=== PATIENT | female | born 1980 | race Caucasian/White ===

== ENCOUNTER 2019-01-15 08:25 | Emergency (ER) | payer MEDICAID, OTHER ==
--- NOTE | 2019-01-15 08:38 | EDPHY ---
H & P Stated Complaint: chest pain Time Seen by Provider: 01/15/19 08:30 HPI/ROS: CHIEF COMPLAINT: Chest pain HISTORY OF PRESENT ILLNESS: The patient is a homeless female who presents the emergency department after she developed chest pain while being arrested. The patient denies prior cardiac history. She takes no regular medications. She denies any fever, cough or congestion. She denies additional acute complaints. REVIEW OF SYSTEMS: A comprehensive 10 point review of systems is otherwise negative aside from elements mentioned in the history of present illness. Source: Patient, EMS - Personal History LMP (Females 10-55): Unknown Current Tetanus/Diphtheria Vaccine: Unsure Current Tetanus Diphtheria and Acellular Pertussis (TDAP): Unsure - Medical/Surgical History Hx Asthma: No Hx Chronic Respiratory Disease: No Hx Diabetes: No Hx Cardiac Disease: No Hx Renal Disease: No Hx Cirrhosis: No Hx Alcoholism: No Hx HIV/AIDS: No Hx Splenectomy or Spleen Trauma: No - Social History Smoking Status: Current some day smoker - Physical Exam Exam: General Appearance: Disheveled female, no acute distress Eyes: Pupils equal and round no pallor or injection ENT, Mouth: Mucous membranes moist Respiratory: There are no retractions, lungs are clear to auscultation Cardiovascular: Regular rate and rhythm Gastrointestinal: Abdomen is soft and nontender, no masses, bowel sounds normal Neurological: 5/5 strength all 4 extremities Skin: Warm and dry, no rashes Musculoskeletal: Neck is supple nontender Extremities: symmetrical, full range of motion Constitutional: Initial Vital Signs Heart Rate 92 01/15/19 08:29 Respiratory Rate 21 H 01/15/19 08:29 Blood Pressure 107/80 01/15/19 08:29 O2 Sat (%) 98 01/15/19 08:29 O2 Delivery Mode Room Air Allergies/Adverse Reactions: Penicillins Allergy (Verified 01/15/19 08:33) Sulfa (Sulfonamide Antibiotics) Allergy (Verified 01/15/19 08:33) Home Medications: Medication Instructions Recorded NK [No Known Home Meds] 01/15/19 Medical Decision Making ED Course/Re-evaluation: The patient is refusing an EKG in the emergency department. I did review her pre-hospital EKG which demonstrates a normal sinus rhythm without evidence of ischemia. The patient has no risk factors for cardiac disease. I do not feel that she is experiencing acute coronary syndrome but rather having symptoms of anxiety secondary to being arrested. Departure - Departure Disposition: Home, Routine, Self-Care Clinical Impression: Chest pain Condition: Good Instructions: Chest Pain (ED) Additional Instructions: 1. The EKG performed by paramedics demonstrates no evidence of an arrhythmia or cardiac condition. You have declined further testing in the emergency department today. 2. I do recommend establishing primary care. You [facility] been given [facility] Referrals: [facility],. [Clinic] - As per Instructions
[2019-01-15 09:17] VITALS: BP 118/69
== END 2019-01-15 09:08 | disposition home or self-care (01) ==
LOC: EEVIPCON 08:25
DX: R07.9 Chest pain, unspecified (principal); Z59.0 Homelessness

== ENCOUNTER 2019-01-17 14:27 | Emergency (ER) | payer OTHER ==
--- NOTE | 2019-01-17 14:40 | EDPHY ---
H & P - Medical/Surgical History Hx Asthma: No Hx Chronic Respiratory Disease: No Hx Diabetes: No Hx Cardiac Disease: No Hx Renal Disease: No Hx Cirrhosis: No Hx Alcoholism: No Hx HIV/AIDS: No Hx Splenectomy or Spleen Trauma: No - Social History Smoking Status: Current some day smoker Time Seen by Provider: 01/17/19 14:31 HPI/ROS: CHIEF COMPLAINT: Suicidal statements, M1 HISTORY OF PRESENT ILLNESS: 38-year-old f homeless female arrives via police on an M1 hold. Per the M1 hold in per the patient when she was being booked into alf she made statements of suicide with no specific plan was subsequently placed on a pre-hospital M1. The time I interview her she states that these were made in the heat of the moment and she regrets making the statements. She denies suicidal or homicidal ideation at the time I interview her. No complaints of pain or discomfort. REVIEW OF SYSTEMS: 10 systems reviewed and negative with the exception of the elements mentioned in the history of present illness PAST MEDICAL & SURGICAL HISTORY: Patient denies prior history of hospitalization for mental health issues. SOCIAL HISTORY:Denies methamphetamine abuse. PHYSICAL EXAM (Prior to examination, patient consented to physical exam, hands were washed and my usual and customary physical exam procedures followed) 1) GENERAL: foul-smelling, dirty, poorly kept, rapid speech, flight of ideas, alert and oriented. Appears to be in no acute distress. 2) HEAD: Normocephalic, atraumatic 3) HEENT: Pupils equal, round, reactive to light bilaterally. Sclera anicteric. 4) NECK: Full range of motion, no meningeal signs. 5) LUNGS: Clear auscultation bilaterally, no wheezes, no rhonchi, no retractions. 6) HEART: Regular rate and rhythm, no murmur, no heave, no gallop. 7) ABDOMEN: No guarding, no rebound, no focal tenderness, negative McBurney's, negative Kelley's, negative Rovsing's, negative peritoneal sign, 8) MUSCULOSKELETAL: Moving all extremities, no focal areas of tenderness, no obvious trauma. No peripheral edema or discoloration. 9) BACK: No CVA tenderness, no midline vertebral tenderness, no fluctuance, no step-off, no obvious trauma, no visual or palpable abnormality. 10) SKIN: multiple excoriated areas on her arms with no signs of super infection.. 11) Psychiatric: Patient is oriented X 3, there is no agitation. Rapid speech , flight of ideas. DIFFERENTIAL DIAGNOSIS: In no particular order including but not limited to psychosis, suicidal ideation, homicidal ideation (Blaine Talbot) Constitutional: Initial Vital Signs Temperature (C) 36.5 C 01/17/19 16:06 Heart Rate 68 01/17/19 16:06 Respiratory Rate 18 01/17/19 16:06 Blood Pressure 122/74 H 01/17/19 16:06 O2 Sat (%) 95 01/17/19 16:06 O2 Delivery Mode Room Air Allergies/Adverse Reactions: Penicillins Allergy (Verified 01/17/19 16:18) Sulfa (Sulfonamide Antibiotics) Allergy (Verified 01/17/19 16:18) Home Medications: Medication Instructions Recorded NK [No Known Home Meds] 01/15/19 Medical Decision Making ED Course/Re-evaluation: 5:00 p.m.: Care turned over to Dr. Ludivina Castro awaiting mental health evaluation. (Blaine Talbot) At the time of sign-out patient was stable. Patient was awaiting evaluation. 2100: Patient is signed out to Dr. Gutierrez at change of shift. Patient is awaiting psychiatric evaluation. (Ludivina Castro) 10:45 p.m. the patient has been evaluated. She has been accepted at [facility] inpatient for decompensated psychosis. She admits that not being suicidal. (Malvin Gutierrez) Other Provider: 2300 care assumed by me from Dr. Gutierrez pending transfer. Patient noted to have scabies. She has been treated with permethrin. Patient can be transferred to their facility after 12 hr. Patient has been accepted at [facility] with plan to transfer in the morning. [address] out to [address] Morris pending transfer. (Pravin Cuenca) - Data Points Laboratory Results: Laboratory Results 01/17/19 16:10 01/17/19 16:10 Medications Given: Discontinued Medications Permethrin (Elimite 5%) 2 raj TP EDNOW ONE Stop: 01/17/19 18:48 Last Admin: 01/17/19 19:16 Dose: 1 tube Departure - Departure Disposition: [facility] IP Clinical Impression: Theresa, Acute psychosis Condition: Fair Referrals: NONE *PRIMARY CARE P,. [Primary Care Provider] - As per Instructions
[2019-01-17 16:23] LABS: PLATELET COUNT 322 10^3/uL (150-400)
[2019-01-17] MEDS ORDERED: PERMETHRIN 5% 60 GM CREAM TP ONE (18:47)
--- NOTE | 2019-01-17 23:16 | ASMTTCLDSP ---
TLC Discharge Disposition Disposition: Answers: Admit Discharge Concerns/Recommendations: Notes: In consultation with [facility] ED physician, Malvin Gutierrez MD and [facility] on-call psychiatrist, Emigdio Ibrahim MD, both concurred that pt appears to meet 27-65 criteria requiring psychiatric hospitalization as the patient appears to be an imminent risk of harm to gravely disabled due to a mental illness condition. The patient was read the Patient Rights and Responsibilities Statement (placed on chart) and given photocopy of Rights. The patient was given the 3N prohibited belongings list while in the ED. Was patient given the Answers: Yes Inpatient Behavioral Health Prohibited Belongings List while in the ED? For inpatient Emigdio Ibrahim MD admission, the following psychiatrist agreed to accept patient for admission to Behavioral Health ([facility]): Type of Hold: Answers: M1/72-hour Hold Date Signed: 01/17/2019 11:15 PM Electronically Signed By:Brittany Rich
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
[2019-01-18 08:44] VITALS: BP 134/78
== END 2019-01-18 10:36 ==
DX: R45.851 Suicidal ideations (principal); F30.9 Manic episode, unspecified; B86 Scabies
CPT/HCPCS: 80305; G0480

== ENCOUNTER 2019-01-18 10:35 | Inpatient (IN) | payer OTHER ==
[2019-01-18 12:05] VITALS: BP 128/71
--- NOTE | 2019-01-18 14:42 | PDHOSCONS ---
History and Physical - Chief Complaint suicidal ideation/lice - History of Present Illness 38 yo F with PMH unknown presenting from shelter with complaints of being suicidal. She denied having a specific plan, placed on M1 hold. At the time of my evaluation patient denies suicidal thoughts but appears disorganized and has trouble answering questions, also asks me to leave and states she does not want me to speak to her any further. She does state that she has 'body lice' and even though she was given medication for it in the ER, she has concerns that they are still on her and she needs more meds. She denies any other concerns currently. Interestingly, she was also arrested several days ago and when taken to shelter complained of chest pain and so was brought to ER for further evaluation. History Information - Allergies/Home Medication List Allergies/Adverse Reactions: pineapple Allergy (Verified 01/18/19 09:50) Sulfa (Sulfonamide Antibiotics) Allergy (Verified 01/18/19 09:50) Anaphylaxis Home Medications: NK [No Known Home Meds] 01/15/19 [Last Taken Unknown] I have personally reviewed and updated: family history, medical history, social history, surgical history - Past Medical History Additional medical history: patient denies, unknown - Surgical History Additional surgical history: patient denies - Family History Additional family history: patient denies - Social History Smoking Status: Current some day smoker Alcohol Use: Occasionally Drug Use: None Additional social history: homeless Review of Systems Review of Systems: ROS: 10pt was reviewed & negative except for what was stated in HPI & below Physical Exam Physical Exam: patient declined allowing me to further examine her, limiting the exam as below Temp Pulse Resp BP Pulse Ox 36.9 C 91 14 128/71 H 96 01/18/19 12:04 01/18/19 12:04 01/18/19 12:04 01/18/19 12:04 01/18/19 12:04 Constitutional: appears nourished, unkempt Eyes: anicteric sclera Skin: other (multiple bites) Neurologic: AAOx3 Psychiatric: anxious, poor insight Assessment & Plan Assessment: 38 yo F with unknown PMH presenting with suicidal ideation and concerns for psychosis # suicidal ideation: patient now denying that, unclear if it was impulsive in the setting of arrest or some level of malingering given recent arrest with chest pain # ? psychosis: patient appears paranoid and guarded, she is not overtly responding to internal stimuli but behavior concerning for psychotic state, on M1 hold and being admitted to for further evaluation as patient appears gravely disabled # infestation: patient with lice or scabies, treated in ER with permethrin # Patient new to my care. Old records reviewed and summarized as above. Care plan reviewed with ER doctor as above.
[2019-01-18] MEDS ORDERED: LORazepam 0.5 MG TAB PO PRN (21:45)
[2019-01-18] MEDS ORDERED: MAGNESIUM HYDROXIDE 30 ML UDCUP PO PRN (21:45)
[2019-01-18] MEDS ORDERED: OLANZapine DISINTEGR 5 MG TAB PO PRN (21:45)
[2019-01-18] MEDS ORDERED: ACETAMINOPHEN 325 MG TAB PO PRN (21:45)
[2019-01-18] MEDS ORDERED: MAG HYDROX/AL HYDROX/SIMETH 30 ML UDCUP PO PRN (21:45)
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
--- NOTE | 2019-01-19 11:09 | PDMN ---
Medical Necessity Medical necessity: [facility] [id number] Schizophrenia Spectrum Disorders, Adult: Inpatient Care, 6 days: 38 yo w/ unspecified schizophrenia spectrum and other psychotic d/o, pt is homeless, making suicidal statements, speech often nonsensical, M1 hold. Admit IP status BEH unit.
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
--- NOTE | 2019-01-20 14:56 | SOAPPROG ---
SOAP Progress Note Assessment/Plan: Assessment: Plan: 01/20/19 14:56 Psychosis: Pt appears to be Schizophrenic v. Schizoaffective. She is less guarded and more cooperative today. Denies illness and refuses any medications. Will monitor, continue to offer Zyprexa at . Subjective: Pt seen, discussed with staff, chart reviewed, interviewed in Treatment Team meeting. She remains aloof, internally preoccupied. Talking to reflection of self in TV for two hours after lunch. Able to reasonably discuss her situation in Team meeting. She denies any history of mental illness or ever taking any psychotropic medications. She declines any treatment here except for the scabies. She states she is willing to stay here until she feels better. Slept well last night. Less hostile today. Disheveled, guarded. Affect is restricted, stable. Mood is "fine." TP is generally linear. TC reveals some paranoid thinking, internal preoccupation, RIS. Objective: Vital Signs Temp Pulse Resp BP Pulse Ox 36.9 C 91 14 128/71 H 96 01/18/19 12:04 01/18/19 12:04 01/18/19 12:04 01/18/19 12:04 01/18/19 12:04 - Time Spent With Patient Time Spent With Patient: 25" ICD10 Worksheet Patient Problems: Problems Problem Status Onset Schizo-affective schizophrenia, chronic condition with acute exacerbation Acute Bipolar affective disorder, currently manic, severe, with psychotic features Acute
--- NOTE | 2019-01-21 08:11 | SOAPPROG ---
SOAP Progress Note Assessment/Plan: Assessment: Unspecified Psychosis. No improvement noted. (see subjective/objective note). Patient could benefit from continued inpatient hospitalization for crisis stabilization, safety, and medication evaluation. Plan: 1. Psychotropic medications: patient reports she prefers not to take medications at this time. 2. Review with patient informed consent and recommendations for psychotropic medication treatment listed below 3. Labs: no additional labs at this time 4. Therapy: continue milieu and group therapy 5. Further investigation including gathering information from patients relatives and review of past case records to inform treatment plan. 6. Safety/Wellness plan and follow-up outpatient appointments to be established prior to discharge. Next steps are for patient to meet with personal care assistant to plan a safe discharge plan and establish outpatient services for ongoing treatment. 7. Confer with inpatient treatment team regarding treatment plan. 8. Psychosocial stressors addressed through counseling case manager. 9. Legal status: voluntary 10. Consider discharge this week if patient is in stable condition, safe, and has a safe discharge plan. PSYCHOTROPIC MEDICATION TREATMENT INFORMED CONSENT and RECOMMENDATIONS: Review nature of condition, diagnosis, and prognosis. Review nature and purpose of psychotropic medication treatment. Review type of psychotropic medications being ordered. Review risk and benefits of psychotropic medication treatment. Review probable length of time patient will need to take medications. Review risk and benefits of not undergoing psychotropic medication treatment. Review alternative treatments to psychotropic medications. Review psychotropic medications contraindications, drug-drug interactions, side effects, and importance of reporting any side effects to a psychiatric provider or nurse during inpatient hospitalization, and upon discharge to patients psychiatric outpatient provider, primary care provider, or other health direct care worker. Review importance of asking a nurse, psychiatric provider, or primary care provider any questions or problems concerning the psychotropic medications. Verify patient understands the information that has been provided, and understands, accepts, and agrees to psychotropic medications. Review patients safety plan and importance of patient to report to staff while hospitalized if patient is ever a danger to self/others, or unable to care for self, and upon discharge, the importance for patient to contact [facility] or [facility], or go to the nearest emergency room, if patient is ever a danger to self/others, or unable to care for self. Recommend that upon discharge patient establish medication management treatment with a psychiatric provider, establishes routine therapy appointments, and follow-up with primary care provider. Verify patient understands and agrees to these recommendations. 01/21/19 08:10 Subjective: Following up with patient for evaluation of psychosis and safety. Patient reports, "Oh, had a weird dream this morning. Is breakfast ready?" Patient reports she is not interested in psychotropic medications. Objective: Vital Signs Temp Pulse Resp BP Pulse Ox 36.9 C 91 14 128/71 H 96 01/18/19 12:04 01/18/19 12:04 01/18/19 12:04 01/18/19 12:04 01/18/19 12:04 MSE: The patient is well-nourished female looking stated chronological age. Attire is appropriate dress is casual. Grooming status is appropriate. Ambulation is independent. Gait is normal and coordinated. Posture is normal and relaxed. Eye contact is appropriate. Motor activity is appropriate with purposeful, organized, coordinated movements; with no involuntary movements. Attitude is fairly cooperative. Patient appears distractible and does not relate well to this interviewer. Language production is spontaneous. R/R/V normal. Articulation is clear. Patient reports mood as okay with anxious incongruent affect. Patients thought process is non-linear, illogical, disorganized, and tangential. Patient does not report suicidal/homicidal thoughts, ideas, or plans. Patient denies auditory, visual hallucinations. Patient denies delusions. Patient does appear to be attending to internal stimuli. Patients attention and concentration are poor. Patient is oriented to person, place, time. Patients insight is poor. Patients judgment is poor. - Time Spent With Patient Time Spent With Patient: 15 minutes, met with patient individually. - Pending Discharge Pending Discharge Within 24 Hours: No Pending Discharge Within 48 Hours: No ICD10 Worksheet Patient Problems: Problems Problem Status Onset Schizo-affective schizophrenia, chronic condition with acute exacerbation Acute Bipolar affective disorder, currently manic, severe, with psychotic features Acute
--- NOTE | 2019-01-21 13:54 | ASMTCMCOM ---
CM Note CM Note Notes: Pt. reports her shoulder still hurting. Pt. reports sleeping "pretty good". Pt. reports getting enough to eat, adding "it's amazing". Pt. reports not currently taking any medications. Pt. reports wanting to attend art group today. Pt. denied having any issues while on the unit. Pt. denied SI, HI, AVH and paranoia. Pt. reports thinking she was suppose to discharge today or tomorrow. Pt. presents as alert, calm, disheveled, spilling food on herself, poor eye contact and mostly cooperative. Staff report pt. sleeping 8 hours and not having scheduled medications. Pt. has a registration appointment on 01/24/19 at 8:30am. Date Signed: 01/21/2019 01:53 PM Electronically Signed By:Delores Guzmán
[2019-01-21] MEDS ORDERED: OLANZapine DISINTEGR 10 MG TAB PO SCH (21:00)
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
--- NOTE | 2019-01-23 13:44 | ASMTBHDC ---
Notes Note: Notes: Pt. reports feeling "good". Pt. reports she slept "pretty good" adding she was able to remember her dreams. Pt. reports getting enough to eat, adding she "really like the portions". Pt. reports her shoulder slowly improving. Pt. stated "it's jacobsen outside...must be why I'm in here". Pt. reports not currently taking any medications. Pt. reports she "maybe" will attend some groups today, adding she "need to be still". Pt. denied SI, HI, AVH and paranoia. Pt. stated she thinks she might discharge tomorrow. Pt. presents in bed, alert, calm, some eye contact, slightly paranoia (aeb not letting CC fully enter room), and mostly cooperative. Staff report pt. sleeping 5.5 hours, being withdrawn to her room and having no scheduled medications. Pt. has an intake appointment with [facility] tomorrow morning at 8:30am. CC to leave a message with [facility] about moving appointment back a day or two. Date Signed: 01/23/2019 01:43 PM Electronically Signed By:Delores Guzmán
--- NOTE | 2019-01-24 06:54 | SOAPPROG ---
SOAP Progress Note Assessment/Plan: Assessment: Unspecified Psychosis. Cannabis Use Disorder. R/O Schizophrenia, Schizoaffective Disorder. No improvement noted. (see subjective/objective note) . Attending to internal stimuli, delusional, withdrawn from social interactions. Patient could benefit from continued inpatient hospitalization for crisis stabilization, safety, and medication evaluation. Plan: 1. Psychotropic medications: Begin trial of Zyprexa Zydis 10 mg po QHS. 2. Review with patient informed consent and recommendations for psychotropic medication treatment listed below 3. Labs: no additional labs at this time 4. Therapy: continue milieu and group therapy 5. Further investigation including gathering information from patients relatives and review of past case records to inform treatment plan. 6. Safety/Wellness plan and follow-up outpatient appointments to be established prior to discharge. Next steps are for patient to meet with care worker to plan a safe discharge plan and establish outpatient services for ongoing treatment. 7. Confer with inpatient treatment team regarding treatment plan. 8. Psychosocial stressors addressed through pillowcase cleaner. 9. Legal status: [facility] 10. Consider discharge this week if patient is in stable condition, safe, and has a safe discharge plan. PSYCHOTROPIC MEDICATION TREATMENT INFORMED CONSENT and RECOMMENDATIONS: Review nature of condition, diagnosis, and prognosis. Review nature and purpose of psychotropic medication treatment. Review type of psychotropic medications being ordered. Review risk and benefits of psychotropic medication treatment. Review probable length of time patient will need to take medications. Review risk and benefits of not undergoing psychotropic medication treatment. Review alternative treatments to psychotropic medications. Review psychotropic medications contraindications, drug-drug interactions, side effects, and importance of reporting any side effects to a psychiatric provider or nurse during inpatient hospitalization, and upon discharge to patients psychiatric outpatient provider, primary care provider, or other health career development consultant. Review importance of asking a nurse, psychiatric provider, or primary care provider any questions or problems concerning the psychotropic medications. Verify patient understands the information that has been provided, and understands, accepts, and agrees to psychotropic medications. Review patients safety plan and importance of patient to report to staff while hospitalized if patient is ever a danger to self/others, or unable to care for self, and upon discharge, the importance for patient to contact [facility] or [facility], or go to the nearest emergency room, if patient is ever a danger to self/others, or unable to care for self. Recommend that upon discharge patient establish medication management treatment with a psychiatric provider, establishes routine therapy appointments, and follow-up with primary care provider. Verify patient understands and agrees to these recommendations. 01/24/19 06:51 Subjective: Following up with patient for evaluation of psychosis and safety. Patient reports as talking to herself in reflection of TV, "Just looking at my eyes." Objective: Vital Signs Temp Pulse Resp BP Pulse Ox 36.9 C 91 14 128/71 H 96 01/18/19 12:04 01/18/19 12:04 01/18/19 12:04 01/18/19 12:04 01/18/19 12:04 MSE: The patient is well-nourished female looking stated chronological age. Attire is appropriate dress is casual. Grooming status is appropriate. Ambulation is independent. Gait is normal and coordinated. Posture is normal and relaxed. Eye contact is appropriate. Motor activity is appropriate with purposeful, organized, coordinated movements; with no involuntary movements. Attitude is fairly cooperative. Patient appears distractible and does not relate well to this interviewer. Language production is spontaneous. R/R/V normal. Articulation is clear. Patient reports mood as okay with anxious incongruent affect. Patients thought process is non-linear, illogical, disorganized, and tangential. Patient does not report suicidal/homicidal thoughts, ideas, or plans. Patient denies auditory, visual hallucinations. Patient denies delusions. Patient does appear to be attending to internal stimuli. Patients attention and concentration are poor. Patient is oriented to person, place, time. Patients insight is poor. Patients judgment is poor. - Time Spent With Patient Time Spent With Patient: 15 minutes, met with patient individually. - Pending Discharge Pending Discharge Within 24 Hours: No Pending Discharge Within 48 Hours: No ICD10 Worksheet Patient Problems: Problems Problem Status Onset Schizo-affective schizophrenia, chronic condition with acute exacerbation Acute Unspecified psychosis Acute Bipolar affective disorder, currently manic, severe, with psychotic features Acute
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
--- NOTE | 2019-01-24 15:07 | ASMTCMCOM ---
CM Note CM Note Notes: Staff report pt. sleeping 6 hours and having no scheduled medications. Staff report pt. responding to internal stimuli often. Per provider, pt. will be offered Zyprexa this evening. RN spoke with pt. about this medication, pt. stated she does not take psychiatric medications. Per provider, CC to move pt's appointments back at least one week. Provider informed about pt's feelings toward medications. Pt's current appointment is on 01/26/19 @ 8:30am. CC to reschedule appointment Date Signed: 01/24/2019 02:38 PM Electronically Signed By:Delores Guzmán
[2019-01-24] MEDS: OLANZapine DISINTEGR 10 MG TAB PO SCH (22:05)
--- NOTE | 2019-01-25 08:13 | SOAPPROG ---
SOAP Progress Note Assessment/Plan: Assessment: Unspecified Psychosis. R/O Schizophrenia, Schizoaffective Disorder. No improvement noted. Patient refusing needed medications, responding to internal stimuli, delusional (see subjective/objective note). Patient could benefit from continued inpatient hospitalization for crisis stabilization, safety, and medication evaluation. Plan: 1. Psychotropic medications: Continue current medications. Continue to educate patient on the importance of taking medications as prescribed. 2. Review with patient informed consent and recommendations for psychotropic medication treatment listed below 3. Labs: no additional labs at this time 4. Therapy: continue milieu and group therapy 5. Further investigation including gathering information from patients relatives and review of past case records to inform treatment plan. 6. Safety/Wellness plan and follow-up outpatient appointments to be established prior to discharge. Next steps are for patient to meet with child caregiver to plan a safe discharge plan and establish outpatient services for ongoing treatment. 7. Confer with inpatient treatment team regarding treatment plan. 8. Psychosocial stressors addressed through nurse outreach case manager. 9. Legal status: voluntary 10. Consider discharge this week if patient is in stable condition, safe, and has a safe discharge plan. PSYCHOTROPIC MEDICATION TREATMENT INFORMED CONSENT and RECOMMENDATIONS: Review nature of condition, diagnosis, and prognosis. Review nature and purpose of psychotropic medication treatment. Review type of psychotropic medications being ordered. Review risk and benefits of psychotropic medication treatment. Review probable length of time patient will need to take medications. Review risk and benefits of not undergoing psychotropic medication treatment. Review alternative treatments to psychotropic medications. Review psychotropic medications contraindications, drug-drug interactions, side effects, and importance of reporting any side effects to a psychiatric provider or nurse during inpatient hospitalization, and upon discharge to patients psychiatric outpatient provider, primary care provider, or other health home care manager. Review importance of asking a nurse, psychiatric provider, or primary care provider any questions or problems concerning the psychotropic medications. Verify patient understands the information that has been provided, and understands, accepts, and agrees to psychotropic medications. Review patients safety plan and importance of patient to report to staff while hospitalized if patient is ever a danger to self/others, or unable to care for self, and upon discharge, the importance for patient to contact [facility] or [facility], or go to the nearest emergency room, if patient is ever a danger to self/others, or unable to care for self. Recommend that upon discharge patient establish medication management treatment with a psychiatric provider, establishes routine therapy appointments, and follow-up with primary care provider. Verify patient understands and agrees to these recommendations. 01/25/19 08:12 Subjective: Following up with patient for evaluation of psychosis and safety. Patient reports, "Yeah, I just need cannabis. I don't take medications because I use [employer] and need to be sent to [facility], that is a facility where they use [employer] and cannabis." Patient continues to provide nonsensical reason for refusing Zyprexa Zydis 10 mg po QHS. Provide education to patient on the importance of taking medications as prescribed. Objective: Vital Signs Temp Pulse Resp BP Pulse Ox 36.9 C 91 14 128/71 H 96 01/18/19 12:04 01/18/19 12:04 01/18/19 12:04 01/18/19 12:04 01/18/19 12:04 MSE: The patient is well-nourished female looking stated chronological age. Attire is appropriate dress is casual. Grooming status is appropriate. Ambulation is independent. Gait is normal and coordinated. Posture is normal and relaxed. Eye contact is appropriate. Motor activity is appropriate with purposeful, organized, coordinated movements; with no involuntary movements. Attitude is uncooperative. Patient appears distractible and does not relate well to this interviewer. Language production is spontaneous. R/R/V normal. Articulation is clear. Patient reports mood as okay with anxious incongruent affect. Patients thought process is non-linear, illogical, disorganized, and tangential. Patient does not report suicidal/homicidal thoughts, ideas, or plans. Patient denies auditory, visual hallucinations. Patient denies delusions. Patient does appear to be attending to internal stimuli. Patients attention and concentration are poor. Patient is oriented to person, place, time. Patients insight is poor. Patients judgment is poor. - Time Spent With Patient Time Spent With Patient: 15 minutes, met with patient individually. - Pending Discharge Pending Discharge Within 24 Hours: No Pending Discharge Within 48 Hours: No ICD10 Worksheet Patient Problems: Problems Problem Status Onset Schizo-affective schizophrenia, chronic condition with acute exacerbation Acute Unspecified psychosis Acute Bipolar affective disorder, currently manic, severe, with psychotic features Acute
--- NOTE | 2019-01-25 12:29 | ASMTCMCOM ---
CM Note CM Note Notes: CC was able to move client's appt from tomorrow to this Thursday (01/28/19) at 8:30am with Patricia; (same location).* Date Signed: 01/25/2019 12:26 PM Electronically Signed By:Jj Lopez
[2019-01-25] MEDS: OLANZapine DISINTEGR 10 MG TAB PO SCH (21:31)
--- NOTE | 2019-01-26 08:19 | SOAPPROG ---
SOAP Progress Note Assessment/Plan: Assessment: Unspecified Psychosis. R/O Schizophrenia, Schizoaffective Disorder. No improvement noted. Patient refusing needed medications, responding to internal stimuli, delusional (see subjective/objective note). Patient is unable to test reality, appropriately attend to her ADLS, and communicate her basic needs. Patient could benefit from continued inpatient hospitalization for crisis stabilization, safety, and medication evaluation. Patient will likely need to be placed on STC and court-ordered medications due to her consistently refusing needed medications for acute psychosis. Plan: 1. Psychotropic medications: Continue current medications. Continue to educate patient on the importance of taking medications as prescribed. Place patient on M1 hold due to grave disability and refusing needed medications. Patient will likely need to be placed on STC and court-ordered medications due to her continuing to refuse needed medications. 2. Review with patient informed consent and recommendations for psychotropic medication treatment listed below 3. Labs: no additional labs at this time 4. Therapy: continue milieu and group therapy 5. Further investigation including gathering information from patients relatives and review of past case records to inform treatment plan. 6. Safety/Wellness plan and follow-up outpatient appointments to be established prior to discharge. Next steps are for patient to meet with primary care md to plan a safe discharge plan and establish outpatient services for ongoing treatment. 7. Confer with inpatient treatment team regarding treatment plan. 8. Psychosocial stressors addressed through telephonic case manager. 9. Legal status: voluntary 10. Consider discharge this week if patient is in stable condition, safe, and has a safe discharge plan. PSYCHOTROPIC MEDICATION TREATMENT INFORMED CONSENT and RECOMMENDATIONS: Review nature of condition, diagnosis, and prognosis. Review nature and purpose of psychotropic medication treatment. Review type of psychotropic medications being ordered. Review risk and benefits of psychotropic medication treatment. Review probable length of time patient will need to take medications. Review risk and benefits of not undergoing psychotropic medication treatment. Review alternative treatments to psychotropic medications. Review psychotropic medications contraindications, drug-drug interactions, side effects, and importance of reporting any side effects to a psychiatric provider or nurse during inpatient hospitalization, and upon discharge to patients psychiatric outpatient provider, primary care provider, or other health child care attendant school. Review importance of asking a nurse, psychiatric provider, or primary care provider any questions or problems concerning the psychotropic medications. Verify patient understands the information that has been provided, and understands, accepts, and agrees to psychotropic medications. Review patients safety plan and importance of patient to report to staff while hospitalized if patient is ever a danger to self/others, or unable to care for self, and upon discharge, the importance for patient to contact [facility] or [facility], or go to the nearest emergency room, if patient is ever a danger to self/others, or unable to care for self. Recommend that upon discharge patient establish medication management treatment with a psychiatric provider, establishes routine therapy appointments, and follow-up with primary care provider. Verify patient understands and agrees to these recommendations. 01/26/19 08:18 Subjective: Following up with patient for evaluation of psychosis and safety. This ENVIRONMENTAL PROJECTS ADVISOR approaches patient in dining area where she appears to be talking to herself in reflection of outdoor patio glass. Patient reports, "I am talking to the cat about f it in the ass because that is how I got my name." Patient provides nonsensical reason for refusing Zyprexa Zydis 10 mg po QHS. Provide education to patient on the importance of taking medications as prescribed. Provide rationale to patient for indication of antipsychotic for her current acute psychosis, and her need for ongoing inpatient psychiatric hospitalization. Patient continues to report she does not need medications. Patient reports she does need inpatient psychiatric hospitalization and treatment. Objective: Vital Signs Temp Pulse Resp BP Pulse Ox 36.9 C 91 14 128/71 H 96 01/18/19 12:04 01/18/19 12:04 01/18/19 12:04 01/18/19 12:04 01/18/19 12:04 MSE: The patient is well-nourished female looking stated chronological age. Attire is appropriate dress is casual. Grooming status is appropriate. Ambulation is independent. Gait is normal and coordinated. Posture is normal and relaxed. Eye contact is appropriate. Motor activity is appropriate with purposeful, organized, coordinated movements; with no involuntary movements. Attitude is uncooperative. Patient appears distractible and does not relate well to this interviewer. Language production is spontaneous. R/R/V normal. Articulation is clear. Patient reports mood as okay with anxious incongruent affect. Patients thought process is non-linear, illogical, disorganized, and tangential. Patient does not report suicidal/homicidal thoughts, ideas, or plans. Patient denies auditory, visual hallucinations. Patient denies delusions. Patient does appear to be attending to internal stimuli. Patients attention and concentration are poor. Patient is oriented to person, place, time. Patients insight is poor. Patients judgment is poor. - Time Spent With Patient Time Spent With Patient: 15 minutes, met with patient individually. - Pending Discharge Pending Discharge Within 24 Hours: No Pending Discharge Within 48 Hours: No ICD10 Worksheet Patient Problems: Problems Problem Status Onset Schizo-affective schizophrenia, chronic condition with acute exacerbation Acute Unspecified psychosis Acute Bipolar affective disorder, currently manic, severe, with psychotic features Acute
[2019-01-26] MEDS: OLANZapine DISINTEGR 10 MG TAB PO SCH (20:47)
--- NOTE | 2019-01-27 08:09 | SOAPPROG ---
SOAP Progress Note Assessment/Plan: Assessment: Unspecified Psychosis. R/O Schizophrenia, Schizoaffective Disorder. Cannabis Use Disorder, severe. No improvement noted. Patient refusing needed medications, responding to internal stimuli, delusional (see subjective/ objective note). Patient is unable to test reality, appropriately attend to her ADLS, and communicate her basic needs. Patient could benefit from continued inpatient hospitalization for crisis stabilization, safety, and medication evaluation. Patient will likely need to be placed on STC and court- ordered medications due to her consistently refusing needed medications for acute psychosis. Plan: 1. Psychotropic medications: Continue current medications. Continue to educate patient on the importance of taking medications as prescribed. Patient will likely need to be placed on STC and court-ordered medications due to her continuing to refuse needed medications. 2. Review with patient informed consent and recommendations for psychotropic medication treatment listed below 3. Labs: no additional labs at this time 4. Therapy: continue milieu and group therapy 5. Further investigation including gathering information from patients relatives and review of past case records to inform treatment plan. 6. Safety/Wellness plan and follow-up outpatient appointments to be established prior to discharge. Next steps are for patient to meet with field care manager to plan a safe discharge plan and establish outpatient services for ongoing treatment. 7. Confer with inpatient treatment team regarding treatment plan. 8. Psychosocial stressors addressed through case loader operator. 9. Legal status: M1 10. Consider discharge this week if patient is in stable condition, safe, and has a safe discharge plan. PSYCHOTROPIC MEDICATION TREATMENT INFORMED CONSENT and RECOMMENDATIONS: Review nature of condition, diagnosis, and prognosis. Review nature and purpose of psychotropic medication treatment. Review type of psychotropic medications being ordered. Review risk and benefits of psychotropic medication treatment. Review probable length of time patient will need to take medications. Review risk and benefits of not undergoing psychotropic medication treatment. Review alternative treatments to psychotropic medications. Review psychotropic medications contraindications, drug-drug interactions, side effects, and importance of reporting any side effects to a psychiatric provider or nurse during inpatient hospitalization, and upon discharge to patients psychiatric outpatient provider, primary care provider, or other health critical care cns. Review importance of asking a nurse, psychiatric provider, or primary care provider any questions or problems concerning the psychotropic medications. Verify patient understands the information that has been provided, and understands, accepts, and agrees to psychotropic medications. Review patients safety plan and importance of patient to report to staff while hospitalized if patient is ever a danger to self/others, or unable to care for self, and upon discharge, the importance for patient to contact [facility] or [facility], or go to the nearest emergency room, if patient is ever a danger to self/others, or unable to care for self. Recommend that upon discharge patient establish medication management treatment with a psychiatric provider, establishes routine therapy appointments, and follow-up with primary care provider. Verify patient understands and agrees to these recommendations. 01/27/19 08:08 Subjective: Following up with patient for evaluation of psychosis and safety. 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 I am not going to take any medications, only pot. I came here to smoke pot. My arm hurts. I talk to myself about my healthcare plan because the food here is really good. I go . I came here from [place] to smoke pot. Why don't you have medical marijuana here?" Provide education to patient on the importance of taking medications as prescribed. Provide rationale to patient for antipsychotic indication for her current acute psychosis, and her need for ongoing inpatient psychiatric hospitalization. Patient continues to report she does not need medications. Patient reports she does need inpatient psychiatric hospitalization and treatment. Objective: Vital Signs Temp Pulse Resp BP Pulse Ox 36.9 C 91 14 128/71 H 96 01/18/19 12:04 01/18/19 12:04 01/18/19 12:04 01/18/19 12:04 01/18/19 12:04 MSE: The patient is well-nourished female looking stated chronological age. Attire is appropriate dress is hospital garb. Grooming status is appropriate. Ambulation is independent. Gait is normal and coordinated. Posture is normal and relaxed. Eye contact is appropriate. Motor activity is appropriate with purposeful, organized, coordinated movements; with no involuntary movements. Attitude is uncooperative. Patient appears distractible and does not relate well to this interviewer. Language production is spontaneous. R/R/V normal. Articulation is clear. Patient reports mood as okay with anxious incongruent affect. Patients thought process is non-linear, illogical, disorganized, and tangential. Patient does not report suicidal/homicidal thoughts, ideas, or plans. Patient denies auditory, visual hallucinations. Patient denies delusions. Patient does appear to be attending to internal stimuli. Patients attention and concentration are poor. Patient is oriented to person, place, time. Patients insight is poor. Patients judgment is poor. - Time Spent With Patient Time Spent With Patient: 15 minutes, met with patient individually. - Pending Discharge Pending Discharge Within 24 Hours: No Pending Discharge Within 48 Hours: No ICD10 Worksheet Patient Problems: Problems Problem Status Onset Schizo-affective schizophrenia, chronic condition with acute exacerbation Acute Unspecified psychosis Acute Bipolar affective disorder, currently manic, severe, with psychotic features Acute
--- NOTE | 2019-01-27 11:41 | ASMTCMCOM ---
CM Note CM Note Notes: Ct. was in bed when CC entered her room. She explained that she injured her arm awhile ago. She lets her arm rest because it hurts. Ct. reported that she is doing fine. Conversation was short but ct. appeared to be able to form clear thoughts. Date Signed: 01/27/2019 11:40 AM Electronically Signed By:Ele Lugo.[facility]
[2019-01-27] MEDS: OLANZapine DISINTEGR 10 MG TAB PO SCH (19:59)
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
--- NOTE | 2019-01-28 15:07 | ASMTCMCOM ---
CM Note CM Note Notes: Pt. attended treatment team planning this morning. Pt. reports she is unwilling to take psychotropic medications. Pt. stated she would like more coffee. Staff report pt. sleeping 7.5 hours and refusing all medications. Per provider, to send COM letter on Thursday (02/01) CC left a message about rescheduling pt's intake appointment with [facility]. Date Signed: 01/28/2019 03:06 PM Electronically Signed By:Delores Guzmán.DAISY,DIGITAL TRAFFIC COORDINATOR,[facility]
[2019-01-28] MEDS: OLANZapine DISINTEGR 10 MG TAB PO SCH (20:18)
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
[2019-01-29] MEDS: OLANZapine DISINTEGR 10 MG TAB PO SCH (22:05)
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
[2019-01-30] MEDS: OLANZapine DISINTEGR 10 MG TAB PO SCH (22:26)
--- NOTE | 2019-01-31 09:09 | SOAPPROG ---
SOAP Progress Note Assessment/Plan: Assessment: Unspecified Psychosis. R/O Schizophrenia, Schizoaffective Disorder. Cannabis Use Disorder, severe. No improvement noted. Patient refusing needed medications, responding to internal stimuli, delusional (see subjective/ objective note). Patient is unable to test reality, appropriately attend to her ADLs, and communicate her basic needs. Patient could benefit from continued inpatient hospitalization for crisis stabilization, safety, and medication evaluation. Patient will likely need to be placed on court-ordered medications due to her consistently refusing needed medications for acute psychosis. Plan: 1. Psychotropic medications: Continue current medications. Continue to educate patient on the importance of taking medications as prescribed. Patient will likely need to be placed on court-ordered medications due to her continuing to refuse needed medications. 2. Review with patient informed consent and recommendations for psychotropic medication treatment listed below 3. Labs: no additional labs at this time 4. Therapy: continue milieu and group therapy 5. Further investigation including gathering information from patients relatives and review of past case records to inform treatment plan. 6. Safety/Wellness plan and follow-up outpatient appointments to be established prior to discharge. Next steps are for patient to meet with hearing care practitioner to plan a safe discharge plan and establish outpatient services for ongoing treatment. 7. Confer with inpatient treatment team regarding treatment plan. 8. Psychosocial stressors addressed through pillowcase cleaner. 9. Legal status: [facility] 10. Consider discharge this week if patient is in stable condition, safe, and has a safe discharge plan. PSYCHOTROPIC MEDICATION TREATMENT INFORMED CONSENT and RECOMMENDATIONS: Review nature of condition, diagnosis, and prognosis. Review nature and purpose of psychotropic medication treatment. Review type of psychotropic medications being ordered. Review risk and benefits of psychotropic medication treatment. Review probable length of time patient will need to take medications. Review risk and benefits of not undergoing psychotropic medication treatment. Review alternative treatments to psychotropic medications. Review psychotropic medications contraindications, drug-drug interactions, side effects, and importance of reporting any side effects to a psychiatric provider or nurse during inpatient hospitalization, and upon discharge to patients psychiatric outpatient provider, primary care provider, or other health care attendant. Review importance of asking a nurse, psychiatric provider, or primary care provider any questions or problems concerning the psychotropic medications. Verify patient understands the information that has been provided, and understands, accepts, and agrees to psychotropic medications. Review patients safety plan and importance of patient to report to staff while hospitalized if patient is ever a danger to self/others, or unable to care for self, and upon discharge, the importance for patient to contact [facility] or [facility], or go to the nearest emergency room, if patient is ever a danger to self/others, or unable to care for self. Recommend that upon discharge patient establish medication management treatment with a psychiatric provider, establishes routine therapy appointments, and follow-up with primary care provider. Verify patient understands and agrees to these recommendations. 01/31/19 09:08 Subjective: Following up with patient for evaluation of psychosis and safety. When ask why patient is hospitalized patient reports nonsensically, "The projactone of the breast size." Patient reports she does not need medications only "pot." Provide education to patient on the importance of taking medications as prescribed. Provide rationale to patient for antipsychotic indication for her current acute psychosis, and her need for ongoing inpatient psychiatric hospitalization. Patient continues to report she does not need medications. Objective: Vital Signs Temp Pulse Resp BP Pulse Ox 36.9 C 91 14 128/71 H 96 01/18/19 12:04 01/18/19 12:04 01/18/19 12:04 01/18/19 12:04 01/18/19 12:04 MD REPORT FROM WEEKEND: Refusing meds. Very disorganized and psychotic. Will likely need COM. MSE: The patient is well-nourished female looking stated chronological age. Attire is appropriate dress is casual. Grooming status is appropriate. Ambulation is independent. Gait is normal and coordinated. Posture is normal and relaxed. Eye contact is appropriate. Motor activity is appropriate with purposeful, organized, coordinated movements; with no involuntary movements. Attitude is uncooperative. Patient appears distractible and does not relate well to this interviewer. Language production is spontaneous. R/R/V normal. Articulation is clear. Patient reports mood as okay with and incongruent affect. Patients thought process is non-linear, illogical, disorganized, and tangential. Patient does not report suicidal/homicidal thoughts, ideas, or plans. Patient denies auditory, visual hallucinations. Patient reports delusions. Patient does appear to be attending to internal stimuli. Patients attention and concentration are poor. Patient is oriented to person, place, time. Patients insight is poor. Patients judgment is poor. - Time Spent With Patient Time Spent With Patient: 15 minutes, met with patient individually. - Pending Discharge Pending Discharge Within 24 Hours: No Pending Discharge Within 48 Hours: No ICD10 Worksheet Patient Problems: Problems Problem Status Onset Schizo-affective schizophrenia, chronic condition with acute exacerbation Acute Unspecified psychosis Acute Bipolar affective disorder, currently manic, severe, with psychotic features Acute
--- NOTE | 2019-01-31 13:00 | ASMTCMCOM ---
CM Note CM Note Notes: Pt. reports "beautiful day". Pt. stated she slept "fine". Pt. reports getting enough to eat. Pt. denied attending groups, stating she is resting her shoulder. Pt. reports not taking any medications. Pt. reports she is "waiting for lunch". Pt. denied SI, HI, AVH and paranoia. Pt. reports wanting to email her . Pt. reports in the summer, her and her "travel around" adding they are planning on traveling throughout [place]. Pt. presents as alert, in bed, lacking eye contact, delayed responses at times, possibly a bit guarded, unkempt, and somewhat cooperative. Staff report pt. sleeping 8 hours, refusing medications, and constantly responding to internal stimuli. CC to check with provider about pt's discharge plan and if seeking COM. Date Signed: 01/31/2019 12:59 PM Electronically Signed By:Delores Guzmán.DAISY,MEDICATION AIDE,NCC
[2019-01-31] MEDS: OLANZapine DISINTEGR 10 MG TAB PO SCH (19:23)
--- NOTE | 2019-02-01 08:55 | SOAPPROG ---
SOAP Progress Note Assessment/Plan: Assessment: Unspecified Psychosis. R/O Schizophrenia, Schizoaffective Disorder. Cannabis Use Disorder, severe. No improvement noted. Patient refusing needed medications, responding to internal stimuli, delusional (see subjective/ objective note). Patient is unable to test reality, appropriately attend to her ADLs, and communicate her basic needs. Patient could benefit from continued inpatient hospitalization for crisis stabilization, safety, and medication evaluation. Patient will likely need to be placed on court-ordered medications due to her consistently refusing needed medications for acute psychosis. Plan: 1. Psychotropic medications: Continue current medications. Continue to educate patient on the importance of taking medications as prescribed. Patient will likely need to be placed on court-ordered medications due to her continuing to refuse needed medications. 2. Review with patient informed consent and recommendations for psychotropic medication treatment listed below 3. Labs: no additional labs at this time 4. Therapy: continue milieu and group therapy 5. Further investigation including gathering information from patients relatives and review of past case records to inform treatment plan. 6. Safety/Wellness plan and follow-up outpatient appointments to be established prior to discharge. Next steps are for patient to meet with childcare provider to plan a safe discharge plan and establish outpatient services for ongoing treatment. 7. Confer with inpatient treatment team regarding treatment plan. 8. Psychosocial stressors addressed through pillowcase turner. 9. Legal status: [facility] 10. Consider discharge this week if patient is in stable condition, safe, and has a safe discharge plan. PSYCHOTROPIC MEDICATION TREATMENT INFORMED CONSENT and RECOMMENDATIONS: Review nature of condition, diagnosis, and prognosis. Review nature and purpose of psychotropic medication treatment. Review type of psychotropic medications being ordered. Review risk and benefits of psychotropic medication treatment. Review probable length of time patient will need to take medications. Review risk and benefits of not undergoing psychotropic medication treatment. Review alternative treatments to psychotropic medications. Review psychotropic medications contraindications, drug-drug interactions, side effects, and importance of reporting any side effects to a psychiatric provider or nurse during inpatient hospitalization, and upon discharge to patients psychiatric outpatient provider, primary care provider, or other health managed care nurse. Review importance of asking a nurse, psychiatric provider, or primary care provider any questions or problems concerning the psychotropic medications. Verify patient understands the information that has been provided, and understands, accepts, and agrees to psychotropic medications. Review patients safety plan and importance of patient to report to staff while hospitalized if patient is ever a danger to self/others, or unable to care for self, and upon discharge, the importance for patient to contact [facility] or [facility], or go to the nearest emergency room, if patient is ever a danger to self/others, or unable to care for self. Recommend that upon discharge patient establish medication management treatment with a psychiatric provider, establishes routine therapy appointments, and follow-up with primary care provider. Verify patient understands and agrees to these recommendations. 02/01/19 08:56 Subjective: Following up with patient for evaluation of psychosis and safety. When this BREAD SLICER MACHINE asks patient how she is doing patient reports, "Not sure what I need in my hair? " Patient states she continues to refuse medications. Patient reports she does not need medications only "pot." Provide education to patient on the importance of taking medications as prescribed. Provide rationale to patient for antipsychotic indication for her current acute psychosis, and her need for ongoing inpatient psychiatric hospitalization. Patient continues to report she does not need medications. Patient reports she does need inpatient psychiatric hospitalization and treatment. Objective: Vital Signs Temp Pulse Resp BP Pulse Ox 36.9 C 91 14 128/71 H 96 01/18/19 12:04 01/18/19 12:04 01/18/19 12:04 01/18/19 12:04 01/18/19 12:04 MD REPORT FROM WEEKEND: Refusing meds. Very disorganized and psychotic. Will likely need COM. MSE: The patient is well-nourished female looking stated chronological age. Attire is appropriate dress is casual. Grooming status is appropriate. Ambulation is independent. Gait is normal and coordinated. Posture is normal and relaxed. Eye contact is appropriate. Motor activity is appropriate with purposeful, organized, coordinated movements; with no involuntary movements. Attitude is uncooperative. Patient appears distractible and does not relate well to this interviewer. Language production is spontaneous. R/R/V normal. Articulation is clear. Patient reports mood as okay with and incongruent affect. Patients thought process is non-linear, illogical, disorganized, and tangential. Patient does not report suicidal/homicidal thoughts, ideas, or plans. Patient denies auditory, visual hallucinations. Patient denies delusions. Patient does appear to be attending to internal stimuli. Patients attention and concentration are poor. Patient is oriented to person, place, time. Patients insight is poor. Patients judgment is poor. - Time Spent With Patient Time Spent With Patient: 15 minutes, met with patient individually. - Pending Discharge Pending Discharge Within 24 Hours: No Pending Discharge Within 48 Hours: No ICD10 Worksheet Patient Problems: Problems Problem Status Onset Schizo-affective schizophrenia, chronic condition with acute exacerbation Acute Unspecified psychosis Acute Bipolar affective disorder, currently manic, severe, with psychotic features Acute
--- NOTE | 2019-02-01 15:11 | ASMTBHDC ---
Notes Note: Notes: Pt. attended the treatment team planning meeting this morning. Pt. reports no be willing to take psychotropic medications. Pt. reports wanting more coffee and novels. Pt. stated she contacts her through email, adding she is surprised he hasn't found her yet. Pt. reports having a food stamps card and getting disability deposited into her back account. Pt. presents as alert, calm, disheveled making clicking noises good eye contact, and somewhat cooperative. Staff report pt. sleeping 5 hours and refusing medications. Per MD, pt. to discharge tomorrow. CC to schedule pt's intake appointment with [facility]. Date Signed: 02/01/2019 03:10 PM Electronically Signed By:Delores [email or web address],NEUROPSYCHOLOGY SERVICE DIRECTOR,NCC
[2019-02-01] MEDS: OLANZapine DISINTEGR 10 MG TAB PO SCH (20:56)
--- NOTE | 2019-02-02 11:03 | BDS ---
[f rep st] BEHAVIORAL HEALTH DISCHARGE SUMMARY REASON FOR ADMISSION: From the psychiatric assessment and history dated 2018, the patient was placed on a 72-hour M1 hold with start date and time of , at 12:30 p.m. The patient was brought in by [facility]'s Office from long-term after she made suicidal statements during her booking at long-term. The patient was admitted involuntarily and on an M1 hold for being a danger to herself. The patient was admitted for safety, crisis stabilization, and medication management. ADMITTING DIAGNOSES: 1. Unspecified psychosis. 2. Cannabis use disorder, severe. 3. Rule out substance-induced psychotic disorder. ADMISSION PHYSICAL EXAM: Patient was seen on 01/18/2019, for hospitalist history and physical consult for medical clearance for inpatient psychiatric hospitalization and treatment. Patient was medically cleared for inpatient psychiatric hospitalization and treatment. For further details, please refer to hospitalist history and physical consult document dated 01/18/2019. ADMISSION LABS: 1. CBC: Within normal limits, except white blood cells were elevated at 10.57 , absolute neutrophils were elevated at 7.562. 2. BMP: Within normal limits. 3. Liver function: Within normal limits. 4. Lipid panel: Within normal limits. 5. Beta HCG qualitative test negative. 6. Toxicology screen: Non-negative for THC. Negative for all other substances screened and negative for ethyl alcohol. MAJOR PROCEDURES OR TESTS: None. HOSPITAL COURSE: The most prominent symptoms and behaviors while the patient was here were reports of delusions. The patient did, at times, present with a disorganized thought process. Treatment modalities utilized were milieu and group therapy. The patient has improved since admission. States to be in stable condition, feels safe to discharge, and she contracts for safety. Patient's response to treatment was good. There were no adverse or unexpected results of treatment. The patient was safe throughout her stay, active in treatment, engaged in groups, and was appropriate with staff and other patients. The patient met with the treatment team prior to discharge to assess readiness to discharge and review discharge plan. The treatment team consensus is the patient is in stable condition, has a safe discharge plan, and is ready to discharge today. Patient has improved considerably with no signs of psychiatric symptoms and no psychiatric symptoms expressed. Patient reports she has improved since admission, states to be in stable condition, feels safe to discharge, and she contracts for safety. Patients response to treatment was good. There were no adverse or unexpected results of treatment. The patient was safe throughout stay, active in treatment, engaged in groups, and was appropriate with staff. Patient met with treatment team prior to discharge to assess readiness to discharge and review discharge plan. The treatment team consensus is the patient in stable condition, has a safe discharge plan, and is ready to discharge today. CONDITION AT DISCHARGE: Patient is in stable condition and is no longer a danger to self or others, and is not gravely disabled due to mental illness. Patient is no longer in need of inpatient level of care, and can be safely and effectively treated within the community. The patients level of risk at time of discharge is low. MSE: The patient is well-nourished female looking stated chronological age. Attire is appropriate dress is casual. Grooming status is appropriate. Ambulation is independent. Gait is normal and coordinated. Posture is normal and relaxed. Eye contact is appropriate. Motor activity is appropriate with purposeful, organized, coordinated movements; with no involuntary movements. Attitude is uncooperative. Patient appears distractible and does not relate well to this interviewer. Language production is spontaneous. R/R/V normal. Articulation is clear. Patient reports mood as okay with and incongruent affect. Patients thought process is linear, logical. Patient does not report suicidal/homicidal thoughts, ideas, or plans. Patient denies auditory, visual hallucinations. Patient denies delusions. Patient does appear to be attending to internal stimuli. Patients attention and concentration are poor. Patient is oriented to person, place, time. Patients insight is poor. Patients judgment is poor. DISCHARGE DIAGNOSES: 1. Unspecified psychosis. 2. Cannabis use disorder, severe. CURRENT MEDICATIONS: After reviewing options, risks, and benefits with the patient, the patient reports her preference is to not take any medications at this time. DISPOSITION: Patient left hospital independently and voluntarily and plans to reconnect with her with plans to travel throughout [place] this summer. FOLLOWUP: medical staffing coordinator reports the appropriate outpatient follow-up services have been established and outpatient appointments have been scheduled. The patient received written instructions with times and dates of outpatient follow-up appointments. LEGAL COURSE: The patient was admitted on an M1 hold. The patient was then placed on a short-term certification during the course of her hospitalization. Short-term certification was terminated at time of discharge and patient discharged today independently and voluntarily. ATTITUDE AT TIME OF DISCHARGE: The patients attitude was positive at time of discharge, and patient reports looking forward to discharging today. The patient reports she feels safe to discharge, is no longer a danger to herself or others, is in stable condition, and contracts for safety. LABS AND RADIOLOGY STUDIES: There were no pending labs or studies at time of discharge. ADVANCE DIRECTIVES: There were no advance directives on file, and patient was full code during this hospitalization. /[id number]/MODL [id number]
== END 2019-02-02 13:05 | disposition home or self-care (01) | DRG 885 ==
LOC: BBEH 10:35
PROVIDERS: ADMIT Psychiatry & Neurology Psychiatry; ATTEND Psychiatry & Neurology Psychiatry
DX: F29 Unspecified psychosis not due to a substance or known physiological condition (principal); F12.959 Cannabis use, unspecified with psychotic disorder, unspecified; Z59.0 Homelessness; Z72.0 Tobacco use